=== PATIENT | female | born 1960 | race Caucasian/White ===

== ENCOUNTER → 2016-08-04 | Outpatient (CLI) | payer BC | END | disposition home or self-care (01) | LOC: LABWHC1 09:48 | PROVIDERS: ATTEND Internal Medicine Endocrinology, Diabetes & Metabolism | DX: E03.9 Hypothyroidism, unspecified (principal); E53.8 Deficiency of other specified B group vitamins | CPT/HCPCS: 36415; 82607; 84443 ==

== ENCOUNTER → 2017-01-26 | Outpatient (CLI) | payer BC ==
[2017-01-26 10:15] LABS: CH 30.1; CHCM 32.7; HCT 39.8 % (34.0-46.0); MCH 30.1 pg (25.0-35.0); MCHC 32.6 g/dL (31.0-37.0); MCV 92.5 fL (80.0-100.0); Mean Platelet Volume 8.3; RDW 13.6 % (11.5-15.5); WBC 7.5 k/uL (3.8-10.6)
== END | disposition home or self-care (01) ==
LOC: LABWHC1 09:52
PROVIDERS: ATTEND Internal Medicine Endocrinology, Diabetes & Metabolism
DX: E03.8 Other specified hypothyroidism (principal); D51.8 Other vitamin B12 deficiency anemias
CPT/HCPCS: 36415; 82607; 82746; 84443; 85027

== ENCOUNTER → 2017-09-19 | Outpatient (CLI) | payer BC | END | disposition home or self-care (01) | LOC: LABWHC1 10:24 | PROVIDERS: ATTEND Internal Medicine Endocrinology, Diabetes & Metabolism | DX: E03.8 Other specified hypothyroidism (principal); E53.8 Deficiency of other specified B group vitamins | CPT/HCPCS: 36415; 82607; 84443 ==

== ENCOUNTER → 2017-12-20 | Outpatient (CLI) | payer BC | END | disposition home or self-care (01) | LOC: LABWHC1 09:20 | PROVIDERS: ATTEND Internal Medicine Endocrinology, Diabetes & Metabolism | DX: E03.8 Other specified hypothyroidism (principal) | CPT/HCPCS: 36415; 84443 ==

== ENCOUNTER 2017-12-22 13:05 | Emergency (ER) | payer BC ==
[2017-12-22 13:34] VITALS: BP 176/99; PULSE 87; RESP 18; TEMP 98.3
--- NOTE | 2017-12-22 15:23 | CT ---
EXAMINATION TYPE: CT brain rosmery wo con DATE OF EXAM: 12/22/2017 COMPARISON: 08/09/2011 HISTORY: 57-year-old female with pain after Fall with facial injuries CT DLP: 1604.56 mGycm Automated exposure control for dose reduction was used. Technique: Examination of the head was done in axial plane without intravenous contrast. Coronal and sagittal reconstructions performed. CT of the cervical spine was obtained in axial plane without intravenous injection of contrast mater ial. Coronal and sagittal reformatted images were obtained from the axial views for evaluation of f ractures, spinal alignment and canal. FINDINGS: Head: There is no evidence of acute intracranial hemorrhage, acute ischemic changes, mass, mass-effect, or extra-axial fluid collection. There is no effacement of cerebral sulci or basal subarachnoid cister ns. There is no hydrocephalus. There is no midline shift. Fry-white matter distinction is preserv ed. Mastoid air cells are well pneumatized. Facial bones reported separately. Cervical spine: The alignment of the cervical spine is normal on coronal and reformatted images. There is no cranial vertebral abnormality. Fracture of the cervical spine is not seen. There is left-sided uncovertebral joint arthropathy at C2-C4 contributing to moderate neural foraminal stenosis. There is no evidence o f focal disk herniation. Sagittal and coronal reformatted images confirm above findings. COMBINED IMPRESSION: 1. No acute intracranial abnormality seen. 2. No acute fracture or malalignment of the cervical spine. 3. Facial bones reported separately.
--- NOTE | 2017-12-22 15:26 | CT ---
EXAMINATION TYPE: CT facial bones wo con DATE OF EXAM: 12/22/2017 COMPARISON: NONE HISTORY: 57-year-old female with pain after Fall with facial injuries TECHNIQUE: Contiguous axial scanning of the patient or bones without IV contrast. Coronal reconstruct ions performed. CT DLP: 618.87 mGycm Automated exposure control for dose reduction was used. FINDINGS: There are extra linear lucency seen projecting along the bilateral nasal bones. No depressed or angul ated nasal bone fracture. There may be some mild overlying soft tissue swelling. Mild mucosal thickening posterior right ethmoid air cells. Orbits and globes are intact. Lobulated mucosal thickening floor of the right maxillary sinus. No acute facial bone or mandibular fracture seen. IMPRESSION: THERE ARE EXTRA LINEAR LUCENCIES ALONG THE BILATERAL NASAL BONES THAT SUGGEST AGE INDETERMINATE NASAL BONE FRACTURES. CORRELATE FOR PAIN HERE. NO DEPRESSED OR ANGULATED NASAL BONE FRACTURE. NO OTHER ACU TE FACIAL BONE FRACTURE.
--- NOTE | 2017-12-22 15:49 | XR ---
EXAMINATION TYPE: XR hand complete 3 views LT, XR knee complete bilateral, 3 views each side DATE OF EXAM: 12/22/2017 COMPARISON: NONE HISTORY: 57-year-old female with pain after fall FINDINGS: Left hand: No acute fracture, subluxation, or dislocation. Knees: On the oblique view of the right knee, there is a subtle focal lucency along the patella. There are m oderate bilateral knee joint effusions. Tricompartmental degenerative spurring in the right knee. Ext ensor mechanisms are intact. Otherwise, no acute fracture or dislocation seen. IMPRESSION: 1. Left hand: No acute osseous abnormal body seen. 2. Right knee: Subtle focal lucency seen only on the oblique view projecting at the patella could rep resent a subtle nondisplaced patellar fracture. Correlate for focal pain here. 3. Knees: Moderate bilateral knee joint effusions. If concern for internal derangement, MRI can be pe rformed.
--- NOTE | 2017-12-22 15:58 | ED ---
General Adult HPI - General Chief complaint: Fall Stated complaint: Fall, Knee pain Time Seen by Provider: 12/22/17 13:54 Source: patient, family, RN notes reviewed Mode of arrival: wheelchair Limitations: no limitations - History of Present Illness Initial comments: 57-year-old female presents to the emergency department for a chief complaint of fall about 5 hours ago. Patient states she was walking when she tripped on uneven pavement and fell onto her bilateral knees. Patient also hit her face on the pavement as well as her head. Patient denies any neck pain. Patient does admit to a mild headache. Patient also complains of nasal pain. Patient states both knees hurt but the right knee hurts more. Patient also complains of pain in the left hand. Patient denies any loss of consciousness. Patient denies being on blood thinners. Patient has no other complaints at this time including shortness of breath, chest pain, abdominal pain, nausea or vomiting, headache, or visual changes. - Related Data Home Medications Medication Instructions Recorded Confirmed Levothyroxine Sodium [Synthroid] 250 mcg PO DAILY 11/12/13 11/12/13 Previous Rx's Medication Instructions Recorded Ondansetron Odt [Zofran Odt] 4 mg PO Q8HR PRN #21 tab 11/12/13 Acetaminophen-Codeine 300-30mg 1 tab PO Q6HR PRN #10 tablet 12/22/17 [Tylenol #3] Amoxicillin/Potassium Clav 1 tab PO Q12HR #20 tab 12/22/17 [Augmentin 875-125 Tablet] Allergies Allergy/AdvReac Type Severity Reaction Status Date / Time No Known Allergies Allergy Verified 12/22/17 13:34 Review of Systems ROS Statement: Those systems with pertinent positive or pertinent negative responses have been documented in the HPI. ROS Other: All systems not noted in ROS Statement are negative. Past Medical History Past Medical History: Thyroid Disorder History of Any Multi-Drug Resistant Organisms: None Reported Past Surgical History: Orthopedic Surgery Additional Past Surgical History / Comment(s): GASTRIC SLEEVE Past Psychological History: No Psychological Hx Reported Smoking Status: Never smoker Past Alcohol Use History: None Reported Past Drug Use History: None Reported General Exam - General Exam Comments Initial Comments: Right lower extremity: Moderate tenderness to the anterior patella of the right knee. Patient has about 90 of flexion and 160 extension. Pain with flexion and extension of the knee. Neurovascular intact with capillary refill less than 2 seconds and pedal pulse 2+. There is mild swelling of the right knee. No ecchymosis or open skin. Left lower extremity: Mild tenderness to the left knee. Patient has full range of motion in the left knee. Cap refill less than 2 seconds and pedal pulse 2+. No swelling or ecchymosis noted of the left knee. Left hand: Tenderness to the lateral fifth metacarpal. Full range of motion of all digits in the right hand. Full range of motion of the wrist. No tenderness in the wrist. No scaphoid tenderness. No ecchymosis. There is a very small abrasion on the lateral hand. Limitations: no limitations General appearance: alert, in no apparent distress Head exam: Present: normocephalic, other (Patient has an erythematous 1 cm x 1 cm area on the left forehead. It is not raised.) Eye exam: Present: normal appearance, PERRL, EOMI. Absent: scleral icterus, conjunctival injection, periorbital swelling, periorbital tenderness, other ( Negative raccoon sign) ENT exam: Present: normal oropharynx (Uvula midline), TM's normal bilaterally, normal external ear exam, other (Patient has ecchymosis overlying the nose. No septal hematomas noted in the right or left nares. Nose is tender to touch.) Neck exam: Present: normal inspection, full ROM. Absent: tenderness, meningismus, lymphadenopathy Respiratory exam: Present: normal lung sounds bilaterally. Absent: respiratory distress, wheezes, rales, rhonchi, stridor Cardiovascular Exam: Present: regular rate, normal rhythm, normal heart sounds. Absent: systolic murmur, diastolic murmur, rubs, gallop, clicks Course Vital Signs 12/22/17 13:31 Temperature 98.3 F Pulse Rate 87 Respiratory 18 Rate Blood Pressure 176/99 O2 Sat by Pulse 99 Oximetry Medical Decision Making - Medical Decision Making 57-year-old female presents to the emergency department for chief complaint of fall. Patient injured both knees, nose, and left hand. Patient has limited range of motion in the right knee, full range of motion in the left knee. Full range motion in the left hand. Neurovascular intact in all extremities. Significant tenderness to the right anterior knee. Patient also hit head. No loss of consciousness. Nasal bone is tender and there is ecchymosis of the nose. No septal hematomas present. X-ray of the left hand shows no acute osseous abnormalities seen. Right knee does show a subtle focal lucency seen only on the oblique view projecting at the patella that could represent a subtle nondisplaced patellar fracture. Bilateral knees have moderate bilateral knee joint effusions. No fracture in the left knee. CT facial bones shows extra linear lucencies along the bilateral nasal bones that suggest eggs indeterminate nasal bone fractures. No depressed or angulated nasal bone fracture. No other acute facial bone fracture. CT brain and C-spine showed no acute intracranial abnormality or fracture or malalignment. Patient's right knee was immobilized and patient will use crutches that she has at home. Prescription was offered which patient declined that she already has crutches. Patient was also given Augmentin and educated to ice the nose. She will follow up with orthopedics and ear nose throat. She was given a disc of images. Patient was also given Tylenol 3 for pain control. Disposition Clinical Impression: Right patella fracture, Closed nondisplaced fracture of nasal bone Disposition: HOME SELF-CARE Condition: Good Instructions: Nasal Fracture (ED), Patellar Fracture (ED) Additional Instructions: Please take Tylenol 3 for pain. You may also take Motrin. Please take Augmentin as directed. Use knee immobilizer and crutches to remain non- weightbearing on right knee. Call orthopedics and Ear Nose Throat physicians on Sunday to make an appointment. Return to the emergency department if you have any worsening symptoms. Prescriptions: Acetaminophen-Codeine 300-30mg [Tylenol #3] 1 tab PO Q6HR PRN #10 tablet PRN Reason: Pain Amoxicillin/Potassium Clav [Augmentin 875-125 Tablet] 1 tab PO Q12HR #20 tab Is patient prescribed a controlled substance at d/c from ED?: Yes When asked, does pt state using other controlled substances?: No If prescribed controlled substance>3 days was MAPS reviewed?: Prescribed <3 Days If opioid is for acute pain is fill amount 7 days or less?: Yes If Rx opioid, was Start Talking consent form obtained?: Yes Referrals: Brandon Jalloh III, MD [Primary Care Provider] - 1-2 days Chet Mcnamara MD [STAFF PHYSICIAN] - 1-2 days Earnest Benson DO [Doctor of Osteopathic Medicine] - 1-2 days Time of Disposition: 16:18
[2017-12-22] MEDS ORDERED: DIPH,PERTUS(ACELL)TETVAC-LF 0.5 ML VIAL IM ONE (16:15)
== END 2017-12-22 16:38 | disposition home or self-care (01) ==
LOC: EC 13:05
DX: S02.2XXA Fracture of nasal bones, initial encounter for closed fracture (principal); S82.001A Unspecified fracture of right patella, initial encounter for closed fracture; S60.512A Abrasion of left hand, initial encounter; L53.9 Erythematous condition, unspecified; M25.461 Effusion, right knee; M25.462 Effusion, left knee; E07.9 Disorder of thyroid, unspecified; Z79.899 Other long term (current) drug therapy; Z23 Encounter for immunization; W18.09XA Striking against other object with subsequent fall, initial encounter; Y93.01 Activity, walking, marching and hiking; Y92.480 Sidewalk as the place of occurrence of the external cause
CPT/HCPCS: 70450; 70486; 72125; 90471; 90715; 99284

== ENCOUNTER 2017-12-27 10:17 | Day surgery (SDC) | payer BC ==
[2017-12-25 14:07] VITALS: BMI 28.1
[~2017-12-27 10:17] MED LIST: DEXAMETHASONE SOD PHOSPHATE 10 MG/ML 1 ML VIAL IV ONE; DEXAMETHASONE SOD PHOSPHATE 4 MG/ML 1 ML VIAL IV ONE; FAMOTIDINE 20 MG/2 ML VIAL IV ONE; LACTATED RINGERS 1,000 ML IV SCH; MIDAZOLAM 2 MG/2 ML VIAL IV PRN; ONDANSETRON 4 MG/2 ML VIAL IVP ONE; SCOPOLAMINE 1.5MG/72HR PATCH TRANSDERM ONE; ceFAZolin IN SWFI 2 GM/20 ML SYRINGE IVP ONE; fentaNYL (PF) 50 MCG/ML 2 ML AMP IV PRN
[2017-12-27] MEDS: OXYMETAZOLINE 0.05% NASL SPRAY 1 SPRAY BOTTLE NASAL ONE ×3 (11:35→12:05)
[2017-12-27] MEDS ORDERED: LIDOCAINE 1% 20 ML VIAL (10MG/ML) FOR IV START INTRADERMA ONE (11:48)
[2017-12-27] MEDS ORDERED: MIDAZOLAM 2 MG/2 ML VIAL ONE (13:20)
[2017-12-27] MEDS ORDERED: SUCCINYLCHOLINE CHLORIDE 100 MG/5 ML SYR IV ONE (13:20)
[2017-12-27] MEDS ORDERED: EPINEPHrine 10 ML SYRINGE (0.1 MG/ML) MISCELLANE ONE (13:20)
[2017-12-27] MEDS ORDERED: PROPOFOL 10 MG/ML 20 ML VIAL IV ONE (13:20)
[2017-12-27] MEDS ORDERED: LIDOCAINE 1% INJ 10MG/ML (20 ML MDV) ONE (13:20)
[2017-12-27] MEDS ORDERED: fentaNYL (PF) 50 MCG/ML 2 ML AMP ONE (13:20)
[2017-12-27] MEDS ORDERED: LIDOCAINE 1% (PF) 10 MG/ML (30 ML SDV) SQ ONE (13:20)
[2017-12-27 14:32] VITALS: TEMP 97.4
--- NOTE | 2017-12-27 14:42 | P.OP ---
Date of Procedure: 12/27/17 Preoperative Diagnosis: Closed nasal bone fracture septal deviation Postoperative Diagnosis: Same Procedure(s) Performed: Closed reduction of nasal bone fracture with stabilization and septoplasty Anesthesia: KRISA Surgeon: Ranjeet Gonzales Estimated Blood Loss (ml): 5 Pathology: other (sinonasal) Condition: stable Disposition: PACU Indications for Procedure: Patient was involved in a fall and struck her nose and cause a severe left septal deviation external nasal deformity from her fractured nose. Surgical correction was discussed and the patient requested this. All risks, benefits, and alternative therapies were discussed. Consent was obtained and all questions were answered. Operative Findings: External nasal deformity with a deviated nasal septum to the left. Description of Procedure: Prior to surgery all risks, benefits, and alternative therapies were discussed. Risks of bleeding, infection, need for secondary surgery, nasal obstruction, loss of sense of smell, anesthetic risks etc. etc. were explained. Consent was obtained and all questions were answered. Patient was taken to the operative room and placed in the supine position. A general inhalation anesthetic was administered to the patient by mask and subsequently intubated with a cuffed endotracheal tube by the department of anesthesia with a functioning IV line in place. The patient was monitored throughout the entire case by the department of anesthesia. We did a ring block around the patient's nose with lidocaine 1% with epinephrine 1 100,000. 10 minutes were allowed wait for full vasoconstrictive effects to take place. At this time a ring block was performed around the nose. A caudal incision was made over the caudal portion of the left septum down to the mucoperichondrium. A mucoperichondrial flap was developed to the extent of visualization on the left and a crossover incision was made with for the mucoperichondrial flap development to the extent of visualization on the contralateral side. With use of crosshatching incisions the septum was straightened and placed back in the midline. After the septum was straightened and placed back in the midline the incision was closed with a 4 rapid Vicryl in a quilting stitch was used to reapproximate the septal flaps and the septum was stabilized the vomerian groove in the midline. After the septum was straightened we used a [employer] nasal elevator to straighten the external nose. We corrected the external nasal deformity and fractured nose with a Boyes elevator and straighten it. The nose was then taped and casted in usual fashion. Follow-up will be in the office in 1 week. The patient is to contact me if any problems should arise.
[2017-12-27] MEDS ORDERED: hydrALAZINE HCL 20 MG/ML 1 ML VIAL IVP ONE (16:15)
[2017-12-27] MEDS ORDERED: LABETALOL 5 MG/ML VIAL MDV IVP ONE ×2 (16:28→17:30)
[2017-12-27 17:39] VITALS: RESP 20
[2017-12-27 18:41] VITALS: BP 168/92; PULSE 84
== END 2017-12-27 18:30 | disposition home or self-care (01) ==
LOC: OR 10:17
PROVIDERS: ATTEND Otolaryngology
DX: S02.2XXA Fracture of nasal bones, initial encounter for closed fracture (principal); S00.83XA Contusion of other part of head, initial encounter; S00.33XA Contusion of nose, initial encounter; J34.2 Deviated nasal septum; W01.198A Fall on same level from slipping, tripping and stumbling with subsequent striking against other object, initial encounter; E07.9 Disorder of thyroid, unspecified; K21.9 Gastro-esophageal reflux disease without esophagitis; Z79.2 Long term (current) use of antibiotics; Z79.890 Hormone replacement therapy; Z79.891 Long term (current) use of opiate analgesic; Z79.1 Long term (current) use of non-steroidal anti-inflammatories (NSAID)
CPT/HCPCS: 88300; 21320; 30520; J2250; J0360; J1100; J2405; J2001 ×2; J0171; J3010; J0330; J2704; J0690

== ENCOUNTER 2018-03-03 16:00 | Emergency (ER) | payer BC ==
[2018-03-03 16:07] VITALS: RESP 18
[2018-03-03] MEDS ORDERED: BUPIVACAINE (PF) 0.5% 30 ML VIAL MISCELLANE STA (16:27)
[2018-03-03] MEDS ORDERED: LIDOCAINE 1% INJ 10MG/ML (20 ML MDV) SQ STA (16:29)
--- NOTE | 2018-03-03 16:32 | XR ---
EXAMINATION TYPE: XR wrist complete RT DATE OF EXAM: 03/03/2018 COMPARISON: NONE HISTORY: Pain after falling TECHNIQUE: 3 views FINDINGS: There is an acute impacted transverse fracture of the distal radial metaphysis. There is no dislocation. There is posterior displacement 10 mm. There is nondisplaced fracture ulnar styloid pro cess. IMPRESSION: Acute fractures of the distal radius and ulna as above.
--- NOTE | 2018-03-03 16:46 | ED ---
General Adult HPI - General Chief complaint: Extremity Injury, Upper Stated complaint: rt wrist injury Time Seen by Provider: 03/03/18 16:02 Source: patient, family Mode of arrival: wheelchair Limitations: no limitations - History of Present Illness Initial comments: Patient is a 57-year-old female presenting for right wrist pain. Patient states that she slipped and fell at home injuring her right hand. She said that she landed on the right hand in a flexed position causing pain at the right wrist. She denies any numbness in the hand but admits to decreased range of motion of the right wrist. She also denies head trauma, loss consciousness, back pain, neck pain. - Related Data Home Medications Medication Instructions Recorded Confirmed Levothyroxine Sodium [Synthroid] 175 mcg PO DAILY 11/12/13 12/27/17 Ibuprofen [Motrin] 400 mg PO Q6HR PRN 12/25/17 12/25/17 Previous Rx's Medication Instructions Recorded Acetaminophen-Codeine 300-30mg 1 tab PO Q6HR PRN #10 tablet 12/22/17 [Tylenol #3] Amoxicillin/Potassium Clav 1 tab PO Q12HR #20 tab 12/22/17 [Augmentin 875-125 Tablet] Amoxicillin/Potassium Clav 1 each PO Q12HR #20 tab 12/27/17 [Augmentin 875-125 Tablet] HYDROcodone/APAP 5-325MG [Alma 1 - 2 tab PO Q4-6H PRN 3 Days #36 12/27/17 5-325] tab Meloxicam [Mobic] 15 mg PO DAILY #10 tab 12/27/17 predniSONE 20 mg PO DIRECTED #5 tab 12/27/17 HYDROcodone/APAP 5-325MG [Alma 1 tab PO Q6HR PRN #12 tab 03/03/18 5-325] Allergies Allergy/AdvReac Type Severity Reaction Status Date / Time No Known Allergies Allergy Verified 03/03/18 16:04 Review of Systems ROS Statement: Those systems with pertinent positive or pertinent negative responses have been documented in the HPI. Constitutional: Negative for chills, fatigue and fever. HENT: Negative for congestion. Respiratory: Negative for chest tightness, shortness of breath and wheezing. Negative for cough Cardiovascular: Negative for chest pain and palpitations. Gastrointestinal: Negative for abdominal pain. Negative for abdominal distention , diarrhea, nausea and vomiting. Genitourinary: Negative for dysuria. Musculoskeletal: Negative for back pain, neck pain and neck stiffness. Positive for right wrist pain Skin: Negative for color change. Neurological: Negative for dizziness, speech difficulty, weakness and light- headedness. Psychiatric/Behavioral: Negative for agitation and confusion. Negative for anxiety ROS Other: All systems not noted in ROS Statement are negative. Past Medical History Past Medical History: Hypertension, Thyroid Disorder Additional Past Medical History / Comment(s): recent fall with fx nose and rt knee cap fx History of Any Multi-Drug Resistant Organisms: None Reported Past Surgical History: Orthopedic Surgery Additional Past Surgical History / Comment(s): GASTRIC SLEEVE, lt ankle with screw in place Past Anesthesia/Blood Transfusion Reactions: Family History of Problems w/ Anesthesia Additional Past Anesthesia/Blood Transfusion Reaction / Comment(s): pt's mother becomes confused with anesthesia. pt reports claustrophobia Past Psychological History: No Psychological Hx Reported Smoking Status: Never smoker Past Alcohol Use History: None Reported Past Drug Use History: None Reported - Past Family History Mother Family Medical History: Blood Disorder Additional Family Medical History / Comment(s): hemophilia General Exam - General Exam Comments Initial Comments: Constitutional: Pt is oriented to person, place, and time. Pt appears well- developed and well-nourished. No distress. HENT: Head: Normocephalic and atraumatic. Eyes: EOM are normal. Neck: Normal range of motion. Neck supple. Cardiovascular: Normal rate, regular rhythm, S1 normal, S2 normal and normal heart sounds. Exam reveals no gallop and no friction rub. No murmur heard. 2+ radial pulses in the right wrist Pulmonary/Chest: Effort normal and breath sounds normal. No tachypnea and no bradypnea. No respiratory distress. No wheezes or rales noted. Abdominal: Soft. Bowel sounds are normal. Pt exhibits no shifting dullness, no distension, no pulsatile liver, no fluid wave, no abdominal bruit and no ascites. There is no tenderness. There is no rigidity, no rebound, no guarding, no tenderness at McBurney's point and negative Romero's sign. Musculoskeletal: Decreased range of motion at the right wrist. Hand and wrist appears to be well perfused and neurovascularly intact. No sensory deficits. Neurological: Pt is alert and oriented to person, place, and time. No cranial nerve deficit. Skin: Skin is warm and dry. No rash noted. Pt is not diaphoretic. No erythema. No pallor. Psychiatric: Pt has a normal mood and affect. Pt behavior is normal. Thought content normal. Limitations: no limitations Course Vital Signs 03/03/18 03/03/18 16:04 18:47 Temperature 98.3 F 97.8 F Pulse Rate 65 70 Respiratory 18 18 Rate Blood Pressure 144/81 138/66 O2 Sat by Pulse 99 98 Oximetry Procedures - Orthopedic Fracture Reduction Fracture #1 Consent Obtained: verbal consent, written consent Time Out Performed: Yes Side: right Fracture Reduction Location: radius Analgesia: hematoma block Technique: direct manipulation, traction/counter-traction Post-Reduction Neuro Exam: intact Post-Reduction Vascular Exam: intact Splint Applied: Yes Patient Tolerated Procedure: well - Orthopedic Splinting/Casting Injury #1 Upper Extremity Injury Location: wrist Upper Extremity Immobilizer: sugar tong splint Medical Decision Making - Medical Decision Making Fe' fracture was reduced. A hematoma block without complication. X-ray confirmed this and patient was splinted in a sugar tong splint and advised follow-up with orthopedics next 1-2 days. Just prior to discharge, the patient stated that she was having some numbness in the tip of the right fourth finger. Dr. Romero from orthopedics contacted and this was discussed. It was advised this is likely secondary to inflammation in that the patient should use elevation and ice as needed. Patient was agreeable plan Disposition Clinical Impression: Distal radius fracture, Fracture of ulnar styloid Disposition: HOME SELF-CARE Condition: Good Instructions: Wrist Injury (ED) Prescriptions: HYDROcodone/APAP 5-325MG [Alma 5-325] 1 tab PO Q6HR PRN #12 tab PRN Reason: Pain Is patient prescribed a controlled substance at d/c from ED?: Yes When asked, does pt state using other controlled substances?: No If prescribed controlled substance>3 days was MAPS reviewed?: Prescribed <3 Days If opioid is for acute pain is fill amount 7 days or less?: Yes If Rx opioid, was Start Talking consent form obtained?: Yes Referrals: Brandon Jalloh III, MD [Primary Care Provider] - 1-2 days Eduardo Romero MD [STAFF PHYSICIAN] - 1-2 days Time of Disposition: 18:11
[2018-03-03] MEDS ORDERED: HYDROmorphone 0.5 MG/0.5 ML SYRINGE IM STA (16:50)
[2018-03-03] MEDS ORDERED: BUPIVACAINE (PF) 0.75% 10 ML VIAL MISCELLANE STA (16:54)
--- NOTE | 2018-03-03 17:55 | XR ---
EXAMINATION TYPE: XR wrist limited RT DATE OF EXAM: 03/03/2018 COMPARISON: NONE HISTORY: Post reduction TECHNIQUE: 2 views FINDINGS: There is satisfactory reduction of the impacted distal radius fracture. There is nondisplac ed ulnar styloid process fracture. IMPRESSION: Satisfactory fracture reduction. No complicating process seen.
[2018-03-03 18:48] VITALS: BP 138/66; PULSE 70; TEMP 97.8
== END 2018-03-03 18:47 | disposition home or self-care (01) ==
LOC: EC 16:00
DX: S52.531A Colles' fracture of right radius, initial encounter for closed fracture (principal); S52.611A Displaced fracture of right ulna styloid process, initial encounter for closed fracture; E07.9 Disorder of thyroid, unspecified; Z87.828 Personal history of other (healed) physical injury and trauma; Z98.890 Other specified postprocedural states; Z79.899 Other long term (current) drug therapy; W01.0XXA Fall on same level from slipping, tripping and stumbling without subsequent striking against object, initial encounter
CPT/HCPCS: 73100; 73110; 99283; 25605; 96372; J2001; J1170

== ENCOUNTER → 2019-09-03 | Outpatient (CLI) | payer BC | END | disposition home or self-care (01) | LOC: LABWHC1 07:55 | PROVIDERS: ATTEND Internal Medicine Endocrinology, Diabetes & Metabolism | DX: E03.8 Other specified hypothyroidism (principal) | CPT/HCPCS: 36415; 84443 ==

== ENCOUNTER → 2020-04-05 | Outpatient (CLI) | payer BC | END | disposition home or self-care (01) | LOC: LABWHC1 08:39 | PROVIDERS: ATTEND Internal Medicine Endocrinology, Diabetes & Metabolism | DX: E03.8 Other specified hypothyroidism (principal) | CPT/HCPCS: 36415; 84443 ==

== ENCOUNTER → 2020-10-01 | Outpatient (CLI) | payer BC | END | disposition home or self-care (01) | LOC: LABWHC1 07:20 | PROVIDERS: ATTEND Internal Medicine Endocrinology, Diabetes & Metabolism | DX: E03.8 Other specified hypothyroidism (principal); E53.8 Deficiency of other specified B group vitamins | CPT/HCPCS: 36415; 82607; 84443 ==

== ENCOUNTER → 2021-05-24 | Outpatient (CLI) | payer BC ==
[2021-05-24 14:34] LABS: T4, Free (Free Thyroxine) 1.27 ng/dL (0.800-1.800)
== END | disposition home or self-care (01) ==
LOC: LABWHC1 07:50
PROVIDERS: ATTEND Internal Medicine Endocrinology, Diabetes & Metabolism
DX: E03.8 Other specified hypothyroidism (principal); E53.8 Deficiency of other specified B group vitamins
CPT/HCPCS: 36415; 82607; 84439; 84443

== ENCOUNTER → 2022-01-11 | Outpatient (CLI) | payer BC | END | disposition home or self-care (01) | LOC: LABWHC1 07:50 | PROVIDERS: ATTEND Internal Medicine Endocrinology, Diabetes & Metabolism | DX: E03.8 Other specified hypothyroidism (principal); E53.8 Deficiency of other specified B group vitamins | CPT/HCPCS: 36415; 82607; 84443 ==

== ENCOUNTER → 2022-09-19 | Outpatient (CLI) | payer BC | END | disposition home or self-care (01) | LOC: LABWHC1 10:56 | PROVIDERS: ATTEND Internal Medicine Endocrinology, Diabetes & Metabolism | DX: E03.8 Other specified hypothyroidism (principal) | CPT/HCPCS: 36415; 82607; 84443 ==

== ENCOUNTER → 2023-09-13 | Outpatient (CLI) | payer BC ==
--- NOTE | 2023-09-13 16:01 | US ---
EXAMINATION TYPE: US thyroid st tissue head/neck DATE OF EXAM: 09/13/2023 COMPARISON: NONE CLINICAL INDICATION: Female, 63 years old with history of E04.1 NONTOXIC SINGLE THYROID NODULE; over 23 years on meds, no symptoms GLAND SIZE: Right Lobe: 3.0 x 1.0 x 1.0 cm Overall Parenchyma: heterogenous Left Lobe: 2.4 x 0.6 x 0.5 cm Overall Parenchyma: heterogenous Isthmus Thickness: 0.2 cm NODULES RIGHT: # of nodules measured on right: 0 LEFT: # of nodules measured on left: 0 ISTHMUS: # of nodules measured in the isthmus: 0 Bilateral neck scanned, no evidence of lymphadenopathy. IMPRESSION: Markedly heterogeneous and small thyroid gland. Findings may be seen with chronic hypothyroidism.
== END | disposition home or self-care (01) ==
LOC: RADUSWWP 06:47
PROVIDERS: ATTEND Family Medicine
DX: E07.89 Other specified disorders of thyroid (principal); E04.1 Nontoxic single thyroid nodule
CPT/HCPCS: 76536

== ENCOUNTER 2024-05-22 12:18 | Emergency (ER) | payer BC ==
[2024-05-22 12:33] VITALS: RESP 18
--- NOTE | 2024-05-22 13:00 | XR ---
EXAMINATION TYPE: XR chest 2V DATE OF EXAM: 05/22/2024 CLINICAL HISTORY: Chest Pain TECHNIQUE: Frontal and lateral views of the chest are obtained. COMPARISON: None FINDINGS: There is no focal air space opacity, pleural effusion, or pneumothorax seen. The cardiac silhouette size is within normal limits. The osseous structures are intact. IMPRESSION: No acute cardiopulmonary process. [facility], , 05/22/2024 12:57 PM
--- NOTE | 2024-05-22 13:12 | ED ---
Chest Pain HPI - General Chief Complaint: Chest Pain Stated Complaint: Back/chest pain Source: patient, RN notes reviewed, old records reviewed Mode of arrival: ambulatory Limitations: no limitations - History of Present Illness Initial Comments: [id number] female to ER for evaluation of chest pain chest pain to the back back pain and tightness left scapula, symptoms on and off for the entire week worsening last night was unable to sleep and worse this morning. Patient does have high blood pressure no other medical history, prior stress test was greater than 10 years ago This is a 63-year-old female to the ER for evaluation of chest pain chest pain to the back And significant elevated blood pressure MD Complaint: chest pain -: days(s) (4) Pain Location: left chest Pain Radiation: back Severity: moderate Severity scale (1-10): 4 Quality: tightness, sharp Consistency: constant Improves With: nothing Worsens With: nothing Anginal Symptoms: dyspnea Other Symptoms: palpitations Treatments Prior to Arrival: none - Related Data Home Medications Medication Instructions Recorded Confirmed Levothyroxine Sodium [Synthroid] 150 mcg PO DAILY 05/22/24 05/22/24 Omeprazole [PriLOSEC] 20 mg PO DAILY 05/22/24 05/22/24 Valsartan [Diovan] 160 mg PO DAILY 05/22/24 05/22/24 Allergies Allergy/AdvReac Type Severity Reaction Status Date / Time No Known Allergies Allergy Verified 05/22/24 15:15 Review of Systems ROS Statement: Those systems with pertinent positive or pertinent negative responses have been documented in the HPI. ROS Other: All systems not noted in ROS Statement are negative. EKG Findings - EKG Comments: EKG Findings:: EKG is sinus 84 NM 154 QRS 99 QTc 396 - EKG Results: EKG: interpreted by ALLY Past Medical History Past Medical History: Hypertension, Thyroid Disorder Additional Past Medical History / Comment(s): recent fall with fx nose and rt knee cap fx History of Any Multi-Drug Resistant Organisms: None Reported Past Surgical History: Orthopedic Surgery Additional Past Surgical History / Comment(s): GASTRIC SLEEVE, lt ankle with screw in place Past Anesthesia/Blood Transfusion Reactions: Family History of Problems w/ Anesthesia Additional Past Anesthesia/Blood Transfusion Reaction / Comment(s): pt's mother becomes confused with anesthesia. pt reports claustrophobia Past Psychological History: No Psychological Hx Reported Smoking Status: Never smoker Past Alcohol Use History: None Reported Past Drug Use History: None Reported - Past Family History Mother Family Medical History: Blood Disorder Additional Family Medical History / Comment(s): hemophilia General Exam Limitations: no limitations General appearance: alert, in no apparent distress Head exam: Present: atraumatic, normocephalic, normal inspection Eye exam: Present: normal appearance, PERRL, EOMI. Absent: scleral icterus, conjunctival injection, periorbital swelling ENT exam: Present: normal exam, mucous membranes moist Neck exam: Present: normal inspection. Absent: tenderness, meningismus, lymphadenopathy Respiratory exam: Present: normal lung sounds bilaterally. Absent: respiratory distress, wheezes, rales, rhonchi, stridor Cardiovascular Exam: Present: regular rate, normal rhythm, normal heart sounds. Absent: systolic murmur, diastolic murmur, rubs, gallop, clicks GI/Abdominal exam: Present: soft, normal bowel sounds. Absent: distended, tenderness, guarding, rebound, rigid Extremities exam: Present: normal inspection, full ROM, normal capillary refill. Absent: tenderness, pedal edema, joint swelling, calf tenderness Back exam: Present: normal inspection Neurological exam: Present: alert, oriented X3, CN II-XII intact Psychiatric exam: Present: normal affect, normal mood Skin exam: Present: warm, dry, intact, normal color. 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 sent in by a medical professional or institution (, PA, SOCIAL DIRECTOR, urgent care, hospital, or correction...) When possible be specific @ -no Did you speak to anyone other than the patient for history (EMS, parent, family, police, friend...)? What history was obtained from this source @ -no Did you review nursing and triage notes (agree or disagree)? Why? @ -agree Are old charts reviewed (outside hosp., previous admission, EMS record, old EKG, old radiological studies, urgent care reports/EKG's, correction records)? Report findings @ -yes Differential Diagnosis (chest pain, altered mental status, abdominal pain women, abdominal pain men, vaginal bleeding, weakness, fever, dyspnea, syncope, headache, dizziness, GI bleed, back pain, seizure, CVA, palpatations, mental health, musculoskeletal)? @ -prior EKG interpreted by me (3pts min.). @ -yes X-rays interpreted by me (1pt min.). @ -yes negative for acute disease CT interpreted by me (1pt min.). @ -yes negative for acute disease U/S interpreted by me (1pt. min.). @ -no What testing was considered but not performed or refused? (CT, X-rays, U/S, labs)? Why? @ -none What meds were considered but not given or refused? Why? @ -none Did you discuss the management of the patient with other professionals (professionals i.e. , PA, SOCIAL DIRECTOR, lab, RT, psych nurse, pediatric social worker, plug sorter, teacher, payroll officer, case liner)? Give summary @ -no Was smoking cessation discussed for >3mins.? @ -no Was critical care preformed (if so, how long)? @ -no Were there social determinants of health that impacted care today? How? (Homelessness, low income, unemployed, alcoholism, drug addiction, t ransportation, low edu. Level, literacy, decrease access to med. care, fpc, rehab)? @ -none Was there de-escalation of care discussed even if they declined (Discuss DNR or withdrawal of care, Hospice)? DNR status @ -no What co-morbidities impacted this encounter? (DM, HTN, Smoking, COPD, CAD, Cancer, CVA, ARF, Chemo, Hep., AIDS, mental health diagnosis, sleep apnea, morbid obesity)? @ -none Was patient admitted / discharged? Hospital course, mention meds given and route, prescriptions, significant lab abnormalities, going to OR and other pertinent info. @ - 63 female to the ER for evaluation of chest pain with elevated blood pressure severely elevated blood pressure here in the ER will put placed on blood pressure medication discharged home Discharge Undiagnosed new problem with uncertain prognosis? @ -no Drug Therapy requiring intensive monitoring for toxicity (Heparin, Nitro, Insulin, Cardizem)? @ -no Were any procedures done? @ -no Diagnosis/symptom? @ -Chest pain and hypertension Acute, or Chronic, or Acute on Chronic? @ -Acute Uncomplicated (without systemic symptoms) or Complicated (systemic symptoms)? @ -Complicated Side effects of treatment? @ -no Exacerbation, Progression, or Severe Exacerbation? @ -exacerbation Poses a threat to life or bodily function? How? (Chest pain, [place], [place], pneumonia, PE, COPD, DKA, ARF, appy, cholecystitis, CVA, Diverticulitis, Homicidal, Suicidal, threat to staff... and all critical care pts) @ -yes with severely elevated hypertension and chest pain Chest Pain MDM - MDM 63 female to the ER for evaluation of chest pain with elevated blood pressure severely elevated blood pressure here in the ER will put placed on blood pressure medication discharged home Disposition Clinical Impression: Atypical chest pain, Chest pain, Back pain, Neck pain Disposition: HOME SELF-CARE Condition: Good Instructions (If sedation given, give patient instructions): Chest Pain (ED), Acute Neck Pain (ED) Is patient prescribed a controlled substance at d/c from ED?: No Referrals: Izabella Portillo MD [Primary Care Provider] - 1-2 days Time of Disposition: 15:30
[2024-05-22] MEDS: SODIUM CHLORIDE 0.9% 1,000 ML IV STA (13:56)
[2024-05-22 14:05] LABS: Basophils % (A) 0 %; Eosinophils # (A) 0.3 k/uL (0-0.7); Eosinophils % (A) 3 %; HCT 40.2 % (34.0-46.0); HGB 12.9 gm/dL (11.4-16.0); Lymphocytes # (A) 2.1 k/uL (1.0-4.8); Lymphocytes % (A) 20 %; MCH 28.9 pg (25.0-35.0); MCHC 31.9 g/dL (31.0-37.0); MCV 90.4 fL (80.0-100.0); Mean Platelet Volume 8.3; Monocytes # (A) 0.6 k/uL (0-1.0); Monocytes % (A) 6 %; Neutrophils # (A) 7.3 k/uL (1.3-7.7); Neutrophils % (A) 70 %; Platelet Count 339 k/uL (150-450); RBC 4.45 m/uL (3.80-5.40); RDW 13.7 % (11.5-15.5); WBC 10.4 k/uL (3.8-10.6)
[2024-05-22 14:24] LABS: INR 0.9 (<1.2); Prothrombin Time 9.9 sec (10.0-12.5)
[2024-05-22 14:27] LABS: ALT 15 U/L (4-34); African American GFR (CKD) 82 (>60 ml/min/1.73 sqM); Albumin 4.1 g/dL (3.5-5.0); Anion Gap 7 mmol/L; Blood Urea Nitrogen 16 mg/dL (7-17); Carbon Dioxide 18 mmol/L (22-30); Chloride 113 mmol/L (98-107); Glucose 93 mg/dL (74-99); Lipase 53 U/L (23-300); Non-African American GFR(CKD) 71 (>60 ml/min/1.73 sqM); Sodium 138 mmol/L (137-145); Total Bilirubin 0.6 mg/dL (0.2-1.3); Total Protein 7.7 g/dL (6.3-8.2)
[2024-05-22 14:34] LABS: NT-Pro-B-Type Natriuretic Pept 166 pg/mL
[2024-05-22 14:59] LABS: AST 27 U/L (14-36); Alkaline Phosphatase 103 U/L (38-126); Magnesium 2.1 mg/dL (1.6-2.3); Potassium 4.7 mmol/L (3.5-5.1)
--- NOTE | 2024-05-22 15:04 | CT ---
EXAMINATION TYPE: CT angio chest CT DLP: 532.8 mGycm, Automated exposure control for dose reduction was used. DATE OF EXAM: 05/22/2024 2:56 PM COMPARISON: Chest radiograph from same day. CLINICAL INDICATION:Female, 63 years old with history of CP; chest pain that radiates into shoulders TECHNIQUE/CONTRAST: CTA scan of the thorax is performed with IV Contrast, patient injected with 100ml mL of Isovue 370, p ulmonary embolism protocol. MIP images are created and reviewed. FINDINGS: Pulmonary Artery: There is no evidence for a filling defect within the pulmonary vasculature to sugge st acute pulmonary embolism. The pulmonary artery is enlarged measuring up to 3.7 cm. Lungs/Pleura: No evidence of focal consolidation, pleural effusion or pneumothorax. Minimal bilateral lower lobe subsegmental atelectasis. Airway: Large airways are patent. Heart: The heart is mildly enlarged for size. No pericardial effusion. Vasculature: Ascending thoracic aortic aneurysm measuring up to 4 cm. Aortic root and ascending thora cic aorta are normal caliber measuring 3.0 cm in diameter. Mediastinum: No evidence of adenopathy. Musculoskeletal: No acute osseous abnormalities. Mild degenerative disease of the mid to lower thorac ic spine. Soft Tissues: Unremarkable. Lower neck: No significant findings. Upper Abdomen: Postsurgical changes from gastric sleeve. Gallbladder is surgical absent. IMPRESSION: 1. No evidence of pulmonary embolism. 2. Enlarged main pulmonary artery which can be seen in the setting of pulmonary arterial hypertension . 3. Ascending thoracic aortic aneurysm measuring 4.0 cm. [facility], , 05/22/2024 3:01 PM
[2024-05-22] MEDS: KETOROLAC 15 MG/ML 1 ML VIAL IVP STA (15:37)
[2024-05-22 15:55] VITALS: BP 172/97; PULSE 81; TEMP 98.4
[2024-05-22] MEDS: MORPHINE SULFATE 4 MG/ML SYRINGE IVP STA (15:59)
== END 2024-05-22 15:59 | disposition home or self-care (01) ==
LOC: EC 12:18
DX: R07.89 Other chest pain (principal); M54.2 Cervicalgia; M54.6 Pain in thoracic spine; I10 Essential (primary) hypertension; Z79.899 Other long term (current) drug therapy
CPT/HCPCS: 36415; 93005; 85379; 83880; 80053; 83690; 83735; 84484; 85025; 85610; 85730; 71046; 71275; 99285; 96374; 96361; J1885; Q9967